=== PATIENT | female | born 1995 | race Caucasian/White ===

== ENCOUNTER 2024-08-25 02:17 | Inpatient (IN) | payer MEDICAID ==
[~2024-08-25] VITALS: Ht 154.9 cm; Wt 64.6 kg
[2024-08-25] MEDS ORDERED: MELATONIN 5 MG TABLET PO PRN (11:00)
[2024-08-25] MEDS ORDERED: MAG HYDROX/ALUMINUM HYD/SIMETH ES 30 ML SUSPENSION UDCUP PO PRN (11:00)
[2024-08-25] MEDS ORDERED: LOPERAMIDE HCL 2 MG CAPSULE PO PRN (11:00)
[2024-08-25] MEDS ORDERED: GuaiFENesin/D-METHORPHAN [SUGAR-FREE] 200-20MG/10 ML SYRUP UDCUP PO PRN (11:00)
[2024-08-25] MEDS ORDERED: PROMETHAZINE HCL 25 MG TABLET PO PRN (11:00)
[2024-08-25] MEDS ORDERED: HydrOXYzine PAMOATE 50 MG CAPSULE PO PRN (11:00)
[2024-08-25 15:14] VITALS: BP 117/57; PULSE 74; RESP 18; TEMP 97.4; O2SAT 98
[2024-08-25] MEDS: PALIPERIDONE PALMITATE 234 MG/1.5 ML SYRINGE IM ONE (16:56)
[2024-08-25] MEDS: THIAMINE 100 MG TABLET PO SCH (16:56)
[2024-08-25 20:17] VITALS: BP 132/92; PULSE 73; RESP 17; TEMP 96.8; O2SAT 98
[2024-08-25] MEDS: ZOLPIDEM TARTRATE 10 MG TABLET PO PRN (20:58)
[2024-08-25] MEDS: OLANZapine 5 MG RAPDIS TABLET PO SCH (21:00)
[2024-08-26 08:24] VITALS: BP 121/86; PULSE 79; RESP 17; TEMP 97.1; O2SAT 98
[2024-08-26 09:26] LABS: BASOPHILS % (AUTO) 0.6 % (0.0-2.0); EOSINOPHILS % (AUTO) 0.6 % (1.0-6.0); HEMATOCRIT 42.2 % (36-46); HEMOGLOBIN 14.2 g/dL (12.0-16.0); LYMPHOCYTES # (AUTO) 1.9 K/uL (1.0-4.8); MEAN CORPUSCULAR HGB CONC 33.7 G/dL (31.0-37.0); MEAN CORPUSCULAR VOLUME 95 fL (80-100); MONOCYTES # (AUTO) 0.5 K/uL (0.1-1.0); MONOCYTES % (AUTO) 5.1 % (2.0-9.0); NEUTROPHILS # (AUTO) 7.9 K/uL (1.8-7.7); NEUTROPHILS % (AUTO) 75.7 % (40.0-70.0); PLATELET COUNT (AUTO) 408 K/uL (150-450); RED BLOOD CELL COUNT(AUTO) 4.44 MIL/uL (4.00-5.20); WHITE BLOOD COUNT (AUTO) 10.4 K/uL (4.5-11.0)
[2024-08-26 09:48] LABS: HEMOGLOBIN A1C 5.3 % (3.8-5.6)
[2024-08-26 09:58] LABS: ALANINE AMINOTRANSFERASE 40 U/L (12-78); ALBUMIN 3.2 g/dL (3.4-5.0); ALKALINE PHOSPHATASE 96 U/L (46-116); ANION GAP 6 mmol/L (8-16); ASPARTATE AMINOTRANSFERASE 28 U/L (15-37); BILIRUBIN,TOTAL 0.2 mg/dL (0.1-1.0); CALCIUM, TOTAL 8.9 mg/dL (8.8-10.5); CARBON DIOXIDE 29 mmol/L (22-29); CHLORIDE 105 mmol/L (98-107); CHOL/HDL RATIO 4.2 (3.9-5.7); CHOLESTEROL 217 mg/dL (131-200); CREATININE 0.93 mg/dL (0.60-1.30); FREE T4 (FREE THYROXINE) 0.74 ng/dL (0.76-1.46); GLOMERULAR FILTR. RATE CALC > 60 mL/min (>60); GLUCOSE,RANDOM 112 mg/dL (70-110); HDL CHOLESTEROL 52 mg/dL (40-60); LDL CHOL (CALC.) 111 mg/dL (0-130); POTASSIUM 4.2 mmol/L (3.5-5.1); SODIUM SERUM 140 mmol/L (136-145); THYROID STIMULATING HORMONE 0.72 uIU/mL (0.36-3.74); TOTAL PROTEIN, SERUM 6.9 g/dL (6.4-8.2); TRIGLYCERIDES 269 mg/dL (15-150); UREA NITROGEN, BLOOD 14 mg/dL (7-18)
[2024-08-26] MEDS: FOLIC ACID 1 MG TABLET PO SCH (09:58)
[2024-08-26] MEDS: OMEGA-3/DHA/EPA/FISH OIL 1,000 MG CAPSULE PO SCH (09:58)
[2024-08-26] MEDS: NALTREXONE HCL 50 MG TABLET PO SCH (09:58)
[2024-08-26] MEDS: MULTIVITAMINS WITH MINERALS, THERAPEUTIC TABLET PO SCH (09:58)
[2024-08-26] MEDS: FLUoxetine HCL 20 MG CAPSULE PO SCH (09:59)
[2024-08-26 20:46] VITALS: BP 102/63; PULSE 99; RESP 16; TEMP 97.7; O2SAT 96
[2024-08-26] MEDS: PRAZOSIN HCL 1 MG CAPSULE PO SCH (21:01)
[2024-08-26] MEDS: DIVALPROEX SODIUM 500 MG ER TABLET PO SCH (21:02)
[2024-08-27 08:34] VITALS: BP 114/69; PULSE 63; RESP 16; TEMP 97.3; O2SAT 99
[2024-08-27 20:00] VITALS: BP 120/69; PULSE 93; RESP 17; TEMP 97; O2SAT 98
[2024-08-27] MEDS: OLANZapine 10 MG RAPDIS TABLET PO SCH (20:33)
[2024-08-28 08:20] VITALS: BP 120/75; PULSE 97; RESP 15; TEMP 97.5; O2SAT 95
[2024-08-28] MEDS: TUBERCULIN, PURIFIED PROTEIN DERIVATIVE 5 TU/0.1 ML SYRINGE ID ONE (16:12)
[2024-08-28 20:17] VITALS: BP 130/79; PULSE 100; RESP 18; TEMP 97.3; O2SAT 99
[2024-08-29 08:38] VITALS: BP 111/69; PULSE 99; RESP 18; TEMP 97.7; O2SAT 99
[2024-08-29] MEDS: FLUoxetine HCL 20 MG CAPSULE PO SCH (08:38)
[2024-08-29] MEDS ORDERED: TraZODone HCL 100 MG TABLET PO PRN (12:45)
[2024-08-29] MEDS: PALIPERIDONE PALMITATE 156 MG/ML SYRINGE IM ONE (15:28)
[2024-08-29] MEDS: ACETAMINOPHEN 325 MG TABLET PO PRN (18:21)
[2024-08-29 18:30] VITALS: RESP 16
[2024-08-29 19:21] VITALS: RESP 18
[2024-08-29 20:08] VITALS: BP 157/61; PULSE 98; RESP 18; TEMP 96.7
[2024-08-29] MEDS: TraZODone HCL 100 MG TABLET PO SCH (20:28)
[2024-08-30 08:46] VITALS: BP 107/66; PULSE 79; RESP 18; TEMP 98; O2SAT 95
[2024-08-30 13:43] LABS: PH,URINE DRUG SCREEN 6.5 (5.0-8.0)
[2024-08-30 13:49] LABS: ALCOHOL, URINE DRUG SCREEN NEGATIVE (NEGATIVE); AMPHET/METH SCREEN,URINE NEGATIVE (NEGATIVE); BARBITURATE SCREEN, URINE NEGATIVE (NEGATIVE); BENZODIAZEPINES SCREEN,URINE NEGATIVE (NEGATIVE); CANNABINOID SCREEN,URINE POSITIVE (NEGATIVE); COCAINE SCREEN,URINE NEGATIVE (NEGATIVE); METHADONE SCREEN, URINE NEGATIVE (NEGATIVE); OPIATE SCREEN,URINE NEGATIVE (NEGATIVE); PHENCYCLIDINE SCREEN,URINE NEGATIVE (NEGATIVE)
[2024-08-30 14:07] LABS: HCG,QUAL URINE NEGATIVE (NEGATIVE)
[2024-08-30 20:50] VITALS: BP 110/65; PULSE 101; RESP 17; TEMP 98.1; O2SAT 96
[2024-08-31 08:16] VITALS: BP 117/70; PULSE 76; RESP 16; TEMP 98.8; O2SAT 98
[2024-08-31 21:21] VITALS: BP 123/77; PULSE 79; RESP 16; TEMP 97.5; O2SAT 98
[2024-08-31] MEDS: MAGNESIUM HYDROXIDE SUSPENSION 30 ML UDCUP PO PRN (23:33)
[2024-09-01 08:14] VITALS: BP 101/60; PULSE 102; RESP 16; TEMP 97.5; O2SAT 95
[2024-09-01] MEDS: TRIHEXYPHENIDYL HCL 5 MG TABLET PO ONE (15:11)
[2024-09-01] MEDS: TRIHEXYPHENIDYL HCL 5 MG TABLET PO SCH (16:39)
[2024-09-01 20:20] VITALS: BP 122/70; PULSE 70; RESP 16; TEMP 98.2; O2SAT 100
[2024-09-01] MEDS: OLANZapine 5 MG RAPDIS TABLET PO SCH (21:22)
[2024-09-02 08:37] VITALS: BP 100/60; PULSE 90; RESP 17; TEMP 98.4; O2SAT 99
[2024-09-02] MEDS: LORazepam 2 MG TABLET PO PRN (09:06)
[2024-09-02] MEDS ORDERED: BACLOFEN 10 MG TABLET PO PRN (19:45)
[2024-09-02 20:55] VITALS: BP 122/89; PULSE 103; RESP 16; TEMP 97.6; O2SAT 98
[2024-09-02] MEDS: LORazepam 2 MG/ML VIAL IM ONE (23:12)
[2024-09-02] MEDS: DiphenhydrAMINE HCL 50 MG/ML VIAL IM ONE (23:12)
[2024-09-02] MEDS: HALOPERIDOL LACTATE 5 MG/ML VIAL IM ONE (23:12)
[2024-09-03] MEDS: LURASIDONE HCL 40 MG TABLET PO SCH (06:21)
[2024-09-03 08:38] VITALS: BP 102/61; PULSE 60; RESP 18; TEMP 96.6; O2SAT 96
[2024-09-03] MEDS ORDERED: LORazepam 2 MG TABLET PO PRN (12:30)
[2024-09-03 20:15] VITALS: BP 109/67; PULSE 115; RESP 18; TEMP 97.6; O2SAT 100
[2024-09-04 08:46] VITALS: BP 105/71; PULSE 93; RESP 14; TEMP 97.6; O2SAT 97
[2024-09-04] MEDS: LURASIDONE HCL 60 MG TABLET PO SCH (15:50)
[2024-09-04 20:36] VITALS: BP 106/69; PULSE 100; RESP 16; TEMP 97.1; O2SAT 100
[2024-09-04] MEDS: OLANZapine 5 MG RAPDIS TABLET PO PRN (21:26)
[2024-09-05 08:35] VITALS: BP 111/75; PULSE 87; RESP 18; TEMP 97; O2SAT 99
[2024-09-05] MEDS ORDERED: LORazepam 0.5 MG TABLET PO PRN (13:30)
[2024-09-05] MEDS: LORazepam 0.5 MG TABLET PO PRN (20:09)
[2024-09-05 20:36] VITALS: BP 118/68; PULSE 96; RESP 18; TEMP 97.3; O2SAT 98
[2024-09-05] MEDS: MIRTAZAPINE 15 MG TABLET PO SCH (21:05)
[2024-09-06 08:00] VITALS: BP 105/59; PULSE 98; RESP 18; TEMP 97.3; O2SAT 99
[2024-09-06 17:39] VITALS: BP 103/68; RESP 17; O2SAT 99
[2024-09-06 21:23] VITALS: BP 106/62; PULSE 96; RESP 18; TEMP 97.3; O2SAT 98
[2024-09-07 09:03] VITALS: BP 111/60; PULSE 95; RESP 18; TEMP 97.5; O2SAT 99
[2024-09-07] MEDS ORDERED: TUBERCULIN, PURIFIED PROTEIN DERIVATIVE 5 TU/0.1 ML SYRINGE ID ONE (14:45)
[2024-09-07] MEDS ORDERED: LURA60TA PO (15:05)
[2024-09-07] MEDS ORDERED: PRAZ1 PO (15:05)
[2024-09-07] MEDS ORDERED: MIRT-89 PO (15:05)
[2024-09-07] MEDS ORDERED: MELA5TAB40 PO (15:05)
[2024-09-07] MEDS ORDERED: OMEG100033 PO (15:05)
[2024-09-07] MEDS ORDERED: DIVA-153 PO (15:05)
[2024-09-07] MEDS ORDERED: TRAZ-257 PO (15:05)
[2024-09-07] MEDS ORDERED: NALT50TA33 PO (15:05)
== END 2024-09-07 17:02 | disposition home or self-care (01) | DRG 750 ==
LOC: B2S 11:49 → B2X 15:00 → B2S 20:01
PROVIDERS: ADMIT Psychiatry & Neurology Psychiatry; ATTEND Psychiatry & Neurology Psychiatry
PROC: GZHZZZZ Group Psychotherapy (ICD-10-PCS; principal; 2024-08-25)
PROC: GZ58ZZZ Individual Psychotherapy, Cognitive-Behavioral (ICD-10-PCS; 2024-08-25)
PROC: GZ56ZZZ Individual Psychotherapy, Supportive (ICD-10-PCS; 2024-08-25)
DX: F25.0 Schizoaffective disorder, bipolar type (principal); Z91.148 Patient's other noncompliance with medication regimen for other reason; F15.10 Other stimulant abuse, uncomplicated; F17.200 Nicotine dependence, unspecified, uncomplicated; F41.9 Anxiety disorder, unspecified; G47.09 Other insomnia; Z55.9 Problems related to education and literacy, unspecified; Z59.00 Homelessness unspecified; Z60.8 Other problems related to social environment; Z63.9 Problem related to primary support group, unspecified; Z65.3 Problems related to other legal circumstances; Z91.199 Patient's noncompliance with other medical treatment and regimen due to unspecified reason; Z91.51 Personal history of suicidal behavior; Z59.6 Low income
CPT/HCPCS: 80053; 80061; 80164; 80307; 83036; 84439; 84443; 84703; 85025; 86592; J1200; J1630; J2060